=== PATIENT | female | born 1990 | race Caucasian/White ===

== ENCOUNTER 2019-02-26 00:32 | Emergency (ER) | payer OTHER, MEDICAID, SELFPAY ==
[2019-02-26 00:34] VITALS: BP 120/72; PULSE 77; RESP 18; TEMP 36.7; O2SAT 98; BMI 36.0
--- NOTE | 2019-02-26 00:50 | ED.DCSUM_ITS ---
History of Present Illness Chief Complaint: Syncope Informant: Patient Narrative: Patient stated that she had gradual onset of lower suprapubic abdominal pain that started an hour ago at work. She stated it started out mild and felt like an uncomfortable feeling and then became more intense. She stated she felt lightheaded due to the pain. The pain then let up and is currently very mild. She is never felt this before. Denies any urinary symptoms. Her last menstrual period was in January but she only bled for 1 day. She took a test 4 days ago and was positive. This is her second . She has a 9-year-old child. She is never had an ectopic . She denies any vaginal bleeding or vaginal discharge. Current severity is mild. No home treatment. No nausea or vomiting or diarrhea. She had a normal day otherwise per patient. Denies any back pain. Denies any fevers or chills or upper abdominal pain. Past Medical History - Allergies and Home Meds Allergies/Adverse Reactions: Allergies No Known Allergies Allergy (Verified 02/26/19 00:37) Primary Care Physician: NOT,DEFINED [NON-STAFF] - Prior records reviewed: Yes Past Medical History: None Surgical History: - - Reviewed Smoking Status: Current every day smoker Alcohol: None Drugs: None Review of Systems General: Denies: Chills, Fever, Sweats Eyes: Denies: Visual changes - bilaterally, Diplopia ENT: Denies: Rhinorrhea, Sore throat Cardiovascular: Denies: Chest pain, Palpitations Respiratory: Denies: Dyspnea, Cough, Dyspnea on exertion Gastrointestinal: Reports: Abdominal pain. Denies: Nausea, Vomiting, Diarrhea, Melena, Hematochezia Genitourinary: Denies: Dysuria, Hematuria, Frequency Musculoskeletal: Denies: Back pain, Extremity Pain Skin: Denies: Rash, Wounds Neurological: Denies: Headache, Weakness, Numbness Physical Exam Vital Signs/Narrative: Vital Signs Temp Pulse Resp BP Pulse Ox 02/26/19 00:34 98.1 F 77 18 120/72 98 General: Well nourished, Well developed, No Acute Distress Head: Normocephalic, Atraumatic Eyes: Perrl, EOMI ENT: Moist mucous membranes, No rhinorrhea Neck: Supple, Nontender Cardiovascular: Regular rate, Regular rhythm, No murmurs Respiratory: No distress, CTA bilaterally, Chest nontender Abdomen: Soft, Nontender, Nondistended, Normal bowel sounds : - - Pelvic exam shows no adnexal tenderness. Cervix is normal. There is no discharge. Vaginal contents normal. External structures normal. No tenderness over the uterus Back: Nontender, Normal Inspection Extremities: Nontender, No edema Skin: Normal color, No rash Neurological: Alert, Oriented x3, Cranial nerves II-XII grossly intact, Normal Strength, Normal Sensation Psychological: Normal affect, Normal Mood Diagnostic/Tx/Re-eval - Medical Decision Making IV established and given IV fluids. Did not want any pain medicine. Lab work obtained. Lab work shows no abnormalities. No evidence of infection. Quantitative levels are 5040. Ultrasound obtained shows nothing acute. Left ovarian cyst 2.7 cm noted. No intrauterine gestational sac. Ectopic cannot be ruled out. 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 At this time it was discussed with her that she will need a repeat quantitative hCG. They may also repeat ultrasound. She understands she still may have an ectopic. However I feel she can be discharged for further outpatient management and still feel this is low in the differential. She understands if she worsens she will return ED Disposition - Plan for ED Patient: Disposition: Home or Assisted Living Diagnosis: Abdominal pain affecting Instructions: Abdominal Pain Additional Instructions: [facility] you will need repeat level checks on Monday
[2019-02-26] MEDS: 0.9% Normal Saline 1,000 ML 1000 ML IV (00:54)
[2019-02-26 00:57] LABS: Absolute Lymphocyte Count 2.53 X10^3/uL (0.83-4.51); Absolute Neutrophil Count 7.6 X10^3/uL (2.0-7.7); Basophil# 0.03 X10^3/uL; Basophil% 0.3 % (0-1); Eosinophil# 0.03 X10^3/uL; Eosinophils% 0.3 % (0-5); Hematocrit 42.5 % (37-47); Hemoglobin 13.6 g/dL (12.0-15.0); Lymphocyte # 2.53 X10^3/ul (4.0); Lymphocyte % 22.9 % (19-41); Mean Corpuscular Hgb 28.9 pg (27.0-32.0); Mean Corpuscular Volume 90.2 fL (81-99); Mean Platelet Vol. 10.6 fl (6.2-12.0); Monocyte# 0.78 X10^3/uL; Monocyte% 7.1 % (0-10); NRBC Flagged by Analyzer 0 % (0-5); Neutrophil # 7.63 X10^3/uL (2.7-7.7); Platelet Count 253 K/mm3 (150-450); RBC Distribution Width CV 12.1 % (11.6-14.6); RBC Distribution Width SD 39.8 fl (35.1-43.9); Red Blood Count 4.71 M/mm3 (4.2-5.4)
[2019-02-26 01:14] LABS: Anion Gap 8 (5-15); BUN 10 mg/dL (7-18); BUN/Creat Ratio 12.3 RATIO (10-20); Calcium,Total 8.9 mg/dL (8.5-10.1); Chloride 105 mmol/L (98-107); Creatinine, Serum 0.82 mg/dL (0.55-1.02); EST Glomerular Filtration Rate 88 mL/min (>60); Est Glom Filt Rate - Afr Amer 106 mL/min (>60); Estimated Creatinine Clearance 94.77 ml/min; Glucose 97 mg/dL (74-106); Potassium 3.9 mmol/L (3.5-5.1); Sodium Level 138 mmol/L (136-145); hCG Titer Quant., Serum 5040 mIU/mL (1-3)
[2019-02-26 01:47] LABS: Bacteria 0 SEEN /hpf (None Seen); Color, Urine Yellow (Yellow); Glucose, Dipstick Normal (Normal); Ketone-Dipstick 5 mg/dl (Negative); Leukocyte Esterase-Dipstick 25 /ul (Negative); Nitrite-Dipstick Negative (Negative); Occult Blood-Urine 10 /ul (Negative); Protein-Dipstick 30 mg/dl (Negative); Red Blood Cells-Urine 0 SEEN /hpf (0-5); Squamous Epithelial Cells - UA 0 SEEN /hpf (5-10); Urine Bilirubin Dipstick Negative (Negative); Urine Clarity Clear (Clear); Urine Urobilinogen 1 mg/dl (Normal)
[2019-02-26 01:53] LABS: Mucous, Urine 1+ /hpf (<or=2+); Transitional Epithelial - Ur 25-50 SEEN /hpf (0-5); White Blood Cells 0-5 SEEN /hpf (0-5)
--- NOTE | 2019-02-26 02:08 | US_ITS ---
STUDY: FIRST TRIMESTER OBSTETRICAL ULTRASOUND REASON FOR EXAM: Female, 28 years old pelvic pain PELVIC PAIN 7 WEEKS LMP: 01/13/2019 TECHNIQUE: Transvaginal TECHNICAL QUALITY: Adequate. PRIOR ULTRASOUND: None. FINDINGS: There is no demonstrated intrauterine gestational sac. The uterus measures 8 x 5.6 x 4.6 cm. There is no demonstrated uterine fibroid. The cervix is closed. The right ovary measures 3.4 x 2.4 x 2.1 cm. There is no right ovarian cyst. There is no visualized right adnexal mass or complex lesion. The left ovary measures 3.8 x 3.2 x 3.0 cm. There is 2.7 cm left ovarian cyst. There is no visualized left adnexal mass or complex lesion. There is minimal fluid in the cul de sac. US/Transvaginal w/Preg US IMPRESSION: There is 2.7 cm left ovarian cyst. There is minimal fluid in the cul de sac. There is no intrauterine gestational sac. Ectopic cannot be excluded. Electronically Signed: Vega Mehta, at 4:13 EDT Tel , Service support ,
[2019-02-26 03:47] VITALS: BP 116/70; PULSE 68; RESP 18; O2SAT 99
[2019-02-26 05:11] VITALS: BP 103/61; PULSE 65; RESP 18; O2SAT 99
== END 2019-02-26 05:43 | disposition home or self-care (01) ==
PROVIDERS: Emergency Provider Emergency Medicine
DX: O26.899 Other specified pregnancy related conditions, unspecified trimester (principal); R10.2 Pelvic and perineal pain; O34.80 Maternal care for other abnormalities of pelvic organs, unspecified trimester; N83.202 Unspecified ovarian cyst, left side; Z3A.00 Weeks of gestation of pregnancy not specified
CPT/HCPCS: 76817; 80048; 81001; 84702; 85025; 96360; 96361; 99285; J7030; A4216

== ENCOUNTER 2019-02-28 06:07 | Day surgery (SDC) | payer OTHER, MEDICAID, SELFPAY ==
[2019-02-28] VITALS (16 sets, daily range): BP systolic 89–125; BP diastolic 52–99; PULSE 18–80; RESP 16–18; TEMP 36.3–37.3; O2SAT 91–100; BMI 36.3
--- NOTE | 2019-02-28 06:21 | US_ITS ---
We are attempting to reach an attending provider to discuss findings. An addendum with communication details will be sent when the communication is complete. EXAM DESCRIPTION: Transvaginal pelvic ultrasound CLINICAL HISTORY: 28 years Female, pain and quantitative HCG 5031 COMPARISON: None FINDINGS: Serial longitudinal and transverse scans of the pelvis were obtained utilizingtransvaginal pelvic ultrasound imaging.. Uterus is identified and is normal in appearance with the following measurements; 9.1 x 5.4 x 4.4 cm. The endometrial echo stripe measures 7 mm, and is smooth. Specifically no evidence of an endometrial, intrauterine gestational sac is seen. No uterine leiomyomas are identified. The ovaries are well identified and has the following measurements: Right ovary: 4.6 x 1.9 x 2.1 cm . No ovarian cyst are identified. Left ovary:: 5.9 x 4.3 x 3.5 cm . A corpus luteum cyst measuring 2.7 x 2.5 x 2.5 cm in size is identified. No adnexal masses or lesions are seen. Bloody fluid is noted in the cul-de-sac. This is most likely due to a ruptured ectopic which is seen in the cul-de-sac and measures 3.8 x 3.1 x 2.7 cm in size. This abnormal report was immediately called to Dr. Chaparro Starks in the emergency room by Dr. Alonso Blackwood at 8:15 AM on 02/28/2019 US/Transvaginal w/Preg US IMPRESSION: An ectopic is noted in the cul-de-sac with surrounding blood suggestive of rupture as described above. Electronically Signed: Alonso Blackwood, at 8:27 EDT Tel , Service support ,
--- NOTE | 2019-02-28 06:24 | ED.VIS.GEN ---
History of Present Illness Chief Complaint: Vag Bld, Preg Informant: Patient Onset: Today Narrative: G1, P2 7 weeks gestation presents with increasing pelvic pain hour prior to arrival. She states there is blood upon wiping. No clots. Patient positive home test a week ago, she is seen 2 days ago in the ED here had a quant of 5000, however ultrasound did not know any intrauterine gestation. There is discussion of possible ectopic, she had a follow-up yesterday at [facility] with Dr. Padron, she reports her quant was high, also states ultrasound was done in office by the physician, still possibly ectopic versus possibly twin gestation however no clear findings. Prior similar symptoms: Yes Past Medical History - Allergies and Home Meds Allergies/Adverse Reactions: Allergies No Known Allergies Allergy (Verified 02/26/19 00:37) Primary Care Physician: Care Physician,No Primary [Primary Care Provider] - Surgical History: - - Reviewed Smoking Status: Former smoker Review of Systems General: Denies: Chills, Fever, Sweats Eyes: Denies: Visual changes - bilaterally, Diplopia ENT: Denies: Rhinorrhea, Sore throat Cardiovascular: Denies: Chest pain, Palpitations Respiratory: Denies: Dyspnea, Cough, Dyspnea on exertion Gastrointestinal: Reports: Abdominal pain. Denies: Nausea, Vomiting, Diarrhea, Melena, Hematochezia Genitourinary: Denies: Dysuria, Hematuria, Frequency Musculoskeletal: Denies: Back pain, Extremity Pain Skin: Denies: Rash, Wounds Neurological: Denies: Headache, Weakness, Numbness Physical Exam Vital Signs/Narrative: Vital Signs Temp Pulse Resp BP Pulse Ox 02/28/19 06:07 97.4 F L 80 18 116/72 98 Inital Vital Signs reviewed: Yes General: Well nourished, Well developed, - - Patient uncomfortable Head: Normocephalic, Atraumatic Eyes: Perrl, EOMI ENT: Moist mucous membranes, No rhinorrhea Neck: Supple, Nontender Cardiovascular: Regular rate, Regular rhythm, No murmurs Respiratory: No distress, CTA bilaterally, Chest nontender Abdomen: Soft, Nondistended, Normal bowel sounds, - - Tender palpation across pelvis, no rebound or guarding Back: Nontender, Normal Inspection Extremities: Nontender, No edema Skin: Normal color, No rash Neurological: Alert, Oriented x3, Cranial nerves II-XII grossly intact, Normal Strength, Normal Sensation Psychological: Normal affect, Normal Mood Diagnostic/Tx/Re-eval Abnormal Lab Results 02/28/19 02/28/19 02/28/19 06:35 06:35 06:35 WBC 8.4 RBC 4.33 Hgb 13.1 Hct 38.6 MCV 89.1 MCH 30.3 MCHC 33.9 RDW Std Deviation 39.4 RDW Coeff of Nayla 12.1 Plt Count 209 MPV 10.3 Immature Gran % (Auto) 0.600 Neut % (Auto) 72.2 H Lymph % (Auto) 15.9 L Lenoir % (Auto) 10.3 H Eos % (Auto) 0.6 Baso % (Auto) 0.4 Absolute Neuts (auto) 6.1 Absolute Lymphs (auto) 1.33 Nucleated RBC % 0 PT INR APTT HCG, Quant 5031 H Blood Type TNP 02/28/19 02/28/19 06:35 06:35 WBC RBC Hgb Hct MCV MCH MCHC RDW Std Deviation RDW Coeff of Nayla Plt Count MPV Immature Gran % (Auto) Neut % (Auto) Lymph % (Auto) Lenoir % (Auto) Eos % (Auto) Baso % (Auto) Absolute Neuts (auto) Absolute Lymphs (auto) Nucleated RBC % PT 14.3 INR 1.1 APTT 35.4 HCG, Quant Blood Type O POSITIVE - Medical Decision Making Patient increasing pain 1 hour prior to arrival. From history, concern for ectopic . Do not have records from evaluation yesterday of her hCG she does not know the number. Blood pressure is stable. Obtain labs, she initially reluctant for pain medicines however agreed, morphine Zofran was given along with fluids. She is kept n.p.o. Ultrasound was ordered for further evaluation. Labs returning, noted hCG today 5031 slightly lower from 2 days ago. As noted she had outpatient drawn yesterday from OB office. Patient currently in imaging right now for ultrasound. Pending results will need to discuss with OB for final disposition. patient signed out to morning physician. ED Disposition - Plan for ED Patient: Diagnosis: Pelvic pain affecting Referrals: Care Physician,No Primary [Primary Care Provider] -
[2019-02-28 06:45] LABS: Absolute Lymphocyte Count 1.33 X10^3/uL (0.83-4.51); Absolute Neutrophil Count 6.1 X10^3/uL (2.0-7.7); Basophil# 0.03 X10^3/uL; Basophil% 0.4 % (0-1); Eosinophil# 0.05 X10^3/uL; Eosinophils% 0.6 % (0-5); Hematocrit 38.6 % (37-47); Hemoglobin 13.1 g/dL (12.0-15.0); Lymphocyte # 1.33 X10^3/ul (4.0); Lymphocyte % 15.9 % (19-41); Mean Corp Hgb Conc 33.9 g/dL (32-36); Mean Corpuscular Hgb 30.3 pg (27.0-32.0); Mean Corpuscular Volume 89.1 fL (81-99); Mean Platelet Vol. 10.3 fl (6.2-12.0); Monocyte# 0.86 X10^3/uL; Monocyte% 10.3 % (0-10); NRBC Flagged by Analyzer 0 % (0-5); Neutrophil # 6.05 X10^3/uL (2.7-7.7); Neutrophil % 72.2 % (47-70); Platelet Count 209 K/mm3 (150-450); RBC Distribution Width CV 12.1 % (11.6-14.6); RBC Distribution Width SD 39.4 fl (35.1-43.9); Red Blood Count 4.33 M/mm3 (4.2-5.4); White Blood Count 8.4 K/mm3 (4.4-11.0)
[2019-02-28] MEDS: Ondansetron 4 MG/2 ML Vial IV (06:46)
[2019-02-28] MEDS: 0.9% Normal Saline 1,000 ML 150 ML IV (06:46)
[2019-02-28] MEDS: Morphine 4 MG/ML Syringe IV (06:47)
--- NOTE | 2019-02-28 06:50 | ED.RN ---
PT AND VISITOR WERE HAVING A LOUD VERBAL DISPUTE AND BEGAN THROWING PERSON ITEMS AROUND THE ROOM. SECURITY CALLED TO REMOVE VISITOR. VISITOR IS NOW WAITING IN THE WAITING ROOM.
[2019-02-28 06:53] LABS: International Normalized Ratio 1.1; Prothrombin Time (Protime)PT. 14.3 SECONDS (11.7-14.9)
[2019-02-28 06:54] LABS: Partial Thromboplast Time 35.4 Seconds (24.1-36.2)
[2019-02-28 07:22] LABS: hCG Titer Quant., Serum 5031 mIU/mL (1-3)
--- NOTE | 2019-02-28 09:06 | ED.VISSUMM ---
- ER Visit Summary Date of Service: 02/28/19 Addendum: The patient was checked out to me with ultrasound pending. Test Results: Clinical Impression(s) from Imaging Studies Obstetrics Ultrasound 02/28/19 06:21 IMPRESSION: An ectopic is noted in the cul-de-sac with surrounding blood suggestive of rupture as described above. Electronically Signed: Alonso Blackwood, at 8:27 EDT Tel , Service support , Emergency Department Course and Treatment: The patient is resting comfortably. She refused pain medications. Treatment Plan: The patient was discussed with Dr. Rachael Kwon. She will be taken to the operating room. Disposition: Admitted in stable condition. Impression: 1. Ruptured ectopic . This note was generated with [employer] dictation software. It may contain incorrect words, spelling, and punctuation that were not noted in review of the chart prior to signing ED Disposition - Plan for ED Patient: Diagnosis: Pelvic pain affecting Referrals: Care Physician,No Primary [Primary Care Provider] -
--- NOTE | 2019-02-28 09:07 | NURSING ---
WP OBS R RICK RUPTURED ECTOPIC
--- NOTE | 2019-02-28 09:13 | ED.RN ---
report called Jesenia ASHRAF RN.
[2019-02-28] MEDS: Lactated Ringers 1,000 ML 75 ML IV ×2 (09:54→14:35)
--- NOTE | 2019-02-28 13:00 | FAL_PTH ---
PATIENT: CRISTO CARCAMO LOC: [facility] [place] U#:[id number] AGE/SX: 28/F ROOM: RE02/28/[address]: Dr. Rachael Kwon MD : 1990 BED: DIS: 02/28/2019 SPEC #: [id number] RECD: 02/28/19 15:01 STATUS: JULY REPierce #: [id number] MOSES: 02/28/19 13:[address]: Rachael Kwon DEPT: SURGICAL PATHOLOGY RECD BY: Blu Colindres ENTERED: 03/01/19 07:13 SP TYPE: ECTOPIC OTHR DR: No Primary Care Phys Tissues: ECTOPIC PREG Procedures: Surgery Specimen Level IV HEADER OPERATION: Laparoscopic removal ectopic PRE-OP DIAGNOSIS: Pelvic pain affecting ; ectopic TISSUE SUBMITTED: Right fallopian tube MICROSCOPIC DIAGNOSIS Right fallopian tube, salpingectomy: Intraluminal chorionic villi, decidualized stroma and trophoblastic cells consistent with tubal . Benign paratubal cyst. AM:vito 03/04/19 MICROSCOPIC DESCRIPTION Slides are reviewed. GROSS DESCRIPTION Received in fixative is one container labeled with the patient's name and designated right fallopian tube. The specimen consists of a fallopian tube measuring 7.5 cm in length and 2.8 cm in greatest diameter. A smooth, glistening cyst measuring 1.2 cm is attached at one end. Serial sections reveal the lumen to contain reddish-chun material. parts are not grossly recognized. Promotion Writer sections are submitted in four cassettes. The cystic structure is submitted in cassette 4. / AM:vito 03/01/19 TC:5 CPT: 15896
--- NOTE | 2019-02-28 13:02 | HP.PCM_ITS ---
History Date of Admission: 02/28/19 History of this : This is a 28 year-old, 2 para 1 with uncertain exact last menstrual period who presents today for acute pelvic pain. She has been having intermittent pelvic pain since 02/25/2019. She was seen in the emergency room on 02 26 and then in the office on 02/27/2019. She then arrived this morning because she had acute sudden onset of pain in her lower mid abdomen, radiating to both sides. She cannot describe it is worse on one side than the other. It is sharp and stabbing. It seems to come in waves. It is intense enough to make her nauseous. Worse when she is moving. She is never had anything like this before. She has been attempting for a couple of months. Surgical history is significant for diagnostic laparoscopy. Symmetrical history: She is had one previous that resulted in a full- term vaginal without complications. She will history: She denies any history of sexually transmitted diseases, she denies any drug use. Allergies No Known Allergies Allergy (Verified 02/26/19 00:37) Home Medications: Home Medications 02/26/19 Smoking Status: Former smoker History Past Pregnancies: Past Pregnancies Delivery Date Name GA/Weeks Outcome Route Weight Infant Gender Labor Length Anesthesia Delivery Location Provider FOB Review of Systems Constitutional: Denies: Anorexia, Chills, Fever Cardiovascular: Denies: Chest Pain, Chest Pressure Respiratory: Denies: Cough, Shortness of Breath Gastrointestinal: Denies: Diarrhea, Nausea, Vomiting Genitourinary: Denies: Dysuria, Frequency Gynecological: Denies: Vaginal discharge, Vaginal itching Skin: Denies: Rash Neurological: Reports: Change in Speech, Slurred speech. Denies: Confusion Hematologic/ Lymphatic: Denies: Anemia, Easy Bruising, Easy Bleeding, Hx of blood clot Physical Exam Vitals: Vital Signs Temp Pulse Resp BP Pulse Ox 98.3 F 68 16 123/70 H 100 02/28/19 09:06 02/28/19 09:09 02/28/19 09:09 02/28/19 09:10 02/28/19 09:09 General: Alert, - - Distress, breathing shallowly and having trouble sitting still in bed because of the abdominal pain. She is lying flat. Cardiovascular: Regular rate Lungs: Normal air movement Abdomen: Non-Distended, Obese, Guarding, Rebound Tenderness, - - No palpable masses or hernia Extremities:: No edema MANAGER OF ORGANIZATIONAL DEVELOPMENT: Normal external genitalia - Pelvic exam deferred due to patient discomfort Assessment/Plan All Active Problems Pelvic pain affecting (Acute) This is a 28 year-old, 2 para 1 now with an ectopic . Quantitative hCGs have basically leveled out at 5000. There is no evidence of an intrauterine on 3 consecutive ultrasounds. Patient had no evidence of a discrete ectopic on previous ultrasounds. Now has free fluid in the cul-de-sac. This along with her acute abdominal pain, I discussed with her and her partner risk benefits and alternatives to surgical intervention. She is not a conservative management patient at this time. They state understanding and agreement with this plan. Risk benefits and alternatives to laparoscopy with removal of ectopic , possible salpingectomy were discussed with the patient her questions were answered to her satisfaction and consent was signed. She understands I cannot definitively at this time from the imaging and her exam tell which side the ectopic is on.
[2019-02-28] MEDS: Bupivacaine Mpf 0.5% 30 ML VIAL (14:00)
--- NOTE | 2019-02-28 14:16 | PCM.OPRPT ---
Report of Operation Date of Procedure: 02/28/19 Pre-Operative Diagnosis: acute abdominal pain, ruptured ectopic Post-Operative Diagnosis: same, ruptured right ectopic + pelvic adhesions Surgery/Procedure Performed:: Laparoscopic right salpingectomy Description of Surgical Findings:: Ruptured right ectopic , normal-appearing right ovary with some of filmy adhesions to the right pelvic sidewall, left tube and ovary adhered to each other and left ovary adhered to the pelvic sidewall, no obvious evidence of endometriosis, some posterior cul-de-sac adhesions. Well-appearing uterus. Ovaries overall normal in appearance. No adhesions noted in the remainder of the lower or upper abdomen line tender flakeboard: andressa Moore Type of Anesthesia:: General Anesthesiologist: Mitesh Lea Special Medications: none Specimen's removed: right fallopian tube w/ suspected ectopic Drains: none Estimated Blood Loss (mL): 100 Fluids Replaced: 800 cc LR Description of Procedure: The patient was taken to the operating room where she was prepped and draped in the dorsolithotomy position. A weighted speculum was placed in the vagina and the anterior lip of the cervix was grasped with a tenaculum. The Avani uterine manipulator was placed and the remainder of the instruments were removed from the vagina. Attention was turned to the abdomen. All port sites were infiltrated with 0.5% Marcaine before skin incisions were made. A 5 mm [intraumbilical] incision was made. The anterior abdominal wall was tented up with 2 towel clamps while a 5 mm blade less trocar and sleeve were [directly inserted]. Intraperitoneal placement was confirmed with the laparoscope. The pneumoperitoneum was created and the underlying abdominal contents were intact. The patient was placed in Trendelenburg. Right and left lower quadrant ports were placed under direct visualization lateral to the inferior epigastric vessels. The bowel was swept away and the above findings were noted. There was a moderate amount of blood and clot in the posterior cul-de-sac. The entire fimbriated end of the tube was swollen and distorted and ruptured. Decision was made to remove the entire tube since it was grossly ruptured. The LigaSure device was used to clamp seal and transect the antimesenteric portions of the right tube to the cornual insertion of the uterus. The tube was amputated from the uterus and the pedicles were all confirmed to be hemostatic. The suction mathematician research was to remove any clots and debris from the posterior cul-de-sac and the peritoneal cavity. Irrigation was used in an attempt to remove as much of the blood as possible. The umbilical port site was stretched with a Marilu clamp and an Endo Catch bag was placed into the peritoneal cavity and the specimen placed in the bag. It was brought out through the umbilical site. The pedicles were again examined and found to be hemostatic. The lateral ports were removed under direct visualization and no active bleeding was noted. The pneumoperitoneum was released. The umbilical port site fascia was closed with 0 Vicryl suture. The skin incisions were closed with Monocryl suture in a subcuticular fashion and skin glue. The vaginal instruments were removed and the vaginal sweep was completed by me. The entire procedure was performed by me with assistance. All sponge and needle counts were correct and the patient was taken to the recovery room in stable condition. Grafts/Implants Used: none - Complications none - Admit VTE Documentation VTE Present on Admission: No VTE Mechan Device Prophylaxis: SCD's VTE Pharm Prophylaxis ordered?: No Reason prophylaxis not ordered:: Procedure Not Indicated
--- NOTE | 2019-02-28 14:32 | PCM.DC.TUB ---
Discharge Diet: No Restrictions - Increase fluid intake for the next 48 hours. Discharge Activity: Return to Normal Activity, May Drive - when you are no longer taking pain/narcotic meds., May Shower, May Take a Tub Bath - in 7 days Additional Activity Instructions:: Ambulate often the next week after surgery. Nothing in the vagina for 5 days. Call your doctor if your incision/area has: Continuous Slow Oozing, Sudden Increased Bleeding, Increased Pain/ Swelling, Increased Redness, Foul Smelling Discharge Call your doctor if you observe: Fever of 101 or Higher Allergies/Adverse Reactions: Allergies No Known Allergies Allergy (Verified 02/26/19 00:37) Medications to take at Discharge Acetaminophen [Tylenol Extra Strength] 500 - 1,000 mg PO Q6H PRN PRN #40 tab 02/28/19 Ibuprofen [Motrin] 800 mg PO TID PRN PRN #60 tab 02/28/19 Oxycodone [Oxyir] 5 mg PO Q8 PRN 4 Days #12 tab 02/28/19 The following prescriptions were given: Ibuprofen [Motrin] 800 mg PO TID PRN PRN #60 tab PRN Reason: Pain Transmission Status: Received by [facility] Oxycodone [Oxyir] 5 mg PO Q8 PRN 4 Days #12 tab PRN Reason: severe pain Transmission Status: Received by [facility] Acetaminophen [Tylenol Extra Strength] 500 - 1,000 mg PO Q6H PRN PRN #40 tab PRN Reason: mild pain Transmission Status: Received by [facility] Primary Care Physician: Care Physician,No Primary [Primary Care Provider] - Test Results: Test results from this visit will be discussed in further detail at your follow-up appointment, if applicable. Please Follow Up With: Rachael Kwon MD - [phone] When: approximately 2 weeks in our office
== END 2019-02-28 17:08 | disposition home or self-care (01) ==
LOC: ED 09:03 → SDC 09:15
PROVIDERS: Emergency Provider Emergency Medicine; Visit Provider Obstetrics & Gynecology
PROC: 10T24ZZ Resection of Products of Conception, Ectopic, Percutaneous Endoscopic Approach (ICD-10-PCS; CPT 59150; principal; 2019-02-28 12:45)
DX: O00.101 Right tubal pregnancy without intrauterine pregnancy (principal); N83.8 Other noninflammatory disorders of ovary, fallopian tube and broad ligament; Z87.891 Personal history of nicotine dependence
CPT/HCPCS: 00840; 59151; 76817; 84702; 85025; 85610; 85730; 86900; 86901; 88305; 99284; J7030; J7120; A4216; J2405

== ENCOUNTER 2021-02-14 21:20 | Inpatient (IN) | payer MEDICAID, SELFPAY ==
[2021-02-14] VITALS (10 sets, daily range): BP systolic 129–152; BP diastolic 61–101; PULSE 67–88; TEMP 36.3–36.9; O2SAT 97; BMI 38.2
[2021-02-14] MEDS: Lactated Ringers 1,000 ML 999 ML IV (21:25)
[2021-02-14 21:31] LABS: Absolute Lymphocyte Count 2.47 X10^3/uL (0.83-4.51); Basophil# 0.04 X10^3/uL; Basophil% 0.5 % (0-1); Eosinophil# 0.03 X10^3/uL; Eosinophils% 0.3 % (0-5); Hemoglobin 12.3 g/dL (12.0-15.0); Lymphocyte # 2.47 X10^3/ul (0.83-4.51); Lymphocyte % 28.4 % (19-41); Mean Corp Hgb Conc 33.2 g/dL (32-36); Mean Corpuscular Volume 87.3 fL (81-99); Mean Platelet Vol. 12.6 fl (6.2-12.0); Monocyte% 11.5 % (0-10); NRBC Flagged by Analyzer 0 % (0-5); Neutrophil # 5.02 X10^3/uL (2.7-7.7); Neutrophil % 57.8 % (47-70); Platelet Count 204 K/mm3 (150-450); RBC Distribution Width CV 12.5 % (11.6-14.6); RBC Distribution Width SD 39.3 fl (35.1-43.9); Red Blood Count 4.24 M/mm3 (4.2-5.4); White Blood Count 8.7 K/mm3 (4.4-11.0)
[2021-02-14] MEDS: Oxytocin 30 units/NS 500 ml 30 UNITS/500 ML IV.SOLN 334 UNITS IV (21:47)
--- NOTE | 2021-02-14 22:08 | HP.PCM.OB_ITS ---
HPI - General General Date of Admission: 02/14/21 HPI Narrative CRISTO CARCAMO, is a 30 F who presents in labor. Maternal Data Information Final LIBIA: 02/17/21 Gestational age: 39&4 PFSH PFSH Medical History (Updated 02/14/21 @ 22:[address] Laly Kim MD) Ectopic , tubal Allergy/AdvReac Type Severity Reaction Status Date / Time No Known Allergies Allergy Verified 02/14/21 21:19 Surgical History (Updated 02/14/21 @ 22:[address] Laly Kim MD) S/P laparoscopic surgery Social History (Updated 02/14/21 @ 22:[address] Laly Kim MD) Smoking Status: Former smoker substance use type: other details: history of substance use per records but none currently Vital Signs Vital Signs Vital Signs: 02/14/21 21:30 02/14/21 22:03 02/14/21 22:04 Pulse Rate 80 88 70 Blood Pressure 140/83 H 136/101 H 143/97 H BP Systolic 140 136 143 BP Diastolic 83 101 97 Pulse Ox 97 Weight Weight: 237 lb Body Mass Index (BMI) 38.2 Labs Labs Labs: Blood Type O POSITIVE Antibody Screen Pending Hct 37.0 % (37-47) Hgb 12.3 g/dL (12.0-15.0) Obstetrics US Group B Strep DNA Pending 3 visits in [place] Assessment & Plan (1) 39 weeks gestation of : COMMENT: 39&4 in labor PLAN: Patient presented to L&D and had a precipitous - see delivery note care in [place] - records from her 3 visits obtained Elevated GCT at 137 with no 3hr GTT and maternal h/o GDM - peds notified Rapid GBS sent COVID pending Plan for social work consult Routine care
--- NOTE | 2021-02-14 22:16 | EX.PCM.OBRPT ---
Maternal Data Information Final LIBIA: 02/17/21 Gestational age: 39&4 Vaginal Delivery Maternal Presentation Maternal Presentation: Active Labor Operative Information Date of Procedure: 02/14/21 Pre-Operative Diagnosis: Labor Post-Operative Diagnosis: Labor Surgery / Procedure Performed: Spontaneous Vaginal Delivery Type of Anesthesia: Local with 1% Lidocaine Estimated Blood Loss: 350ml Findings Description of Procedure: Patient prepped & draped when C/C/+2. She pushed well to deliver the head. head gently guided to allow delivery of anterior and posterior shoulders. No excess traction placed on head. Body delivered and 3VC clamped & cut in delayed fashion. Placenta delivered with gentle traction and good uterine tone obtained. Presentation: LIA Amniotic Membrane Rupture Type: Spontaneous Amniotic Fluid Description: Clear Placental Delivery Description: Expressed Placenta Disposition: [facility] Specimen(s) Removed: Placenta Cord Vessel Description: 3 Vessels Cord Entanglement: None A Gender: Male (1 minute): 8 (5 minute): 9 Delayed Cord Clamping: Yes Post Vaginal Delivery Medications Given After Delivery: IV Pitocin Episiotomy Description: None Laceration: 1st degree (bilateral vaginal - repaired with 3-0 vicryl) Complication Complications: None
--- NOTE | 2021-02-14 22:25 | NURSING ---
Limited care- 3 visits total, did not establish care in [place]
[2021-02-14 23:04] LABS: Group B Strep DNA By PCR POSITIVE (Negative); Probe Check PASS
[2021-02-14 23:17] LABS: AST(SGOT) 16 U/L (15-37); Alanine Aminotransfer ALT/SGPT 13 U/L (13-56); Creatinine, Serum 0.83 mg/dL (0.55-1.02); EST Glomerular Filtration Rate 85 mL/min (>60); Est Glom Filt Rate - Afr Amer 103 mL/min (>60); Estimated Creatinine Clearance 91.94 ml/min; Uric Acid 5.2 mg/dL (2.6-6.0)
[2021-02-15 00:04] VITALS: BP 145/70; PULSE 68
--- NOTE | 2021-02-15 00:46 | NURSING ---
0020 Assisted pt up to BR. Several large clots noted in urine hat. Pt denies c/o dizziness or lightheaded. Pt educated on pericare, and s/s to report to RN. Urine specimen sent to lab for tox screen per protocol.
[2021-02-15 01:20] LABS: Amphetamine Urine VISTA NEGATIVE (<1000 ng/mL); Barbiturate Urine VISTA NEGATIVE (< 200 ng/mL); Benzodiazepine Urine VISTA NEGATIVE (< 200 ng/mL); Cocaine Urine VISTA NEGATIVE (< 300 ng/mL); Ecstacy Urine VISTA NEGATIVE (< 500 ng/mL); Methadone Urine VISTA NEGATIVE (< 300 ng/mL); PCP Urine VISTA NEGATIVE (< 25 ng/mL); THC Urine VISTA NEGATIVE (< 50 ng/mL); Vista UDS pH Range 7
[2021-02-15 04:30] VITALS: BP 110/71; PULSE 103; RESP 16; TEMP 36.2
[2021-02-15 08:03] VITALS: BP 113/68; PULSE 96; RESP 16; TEMP 36.5
[2021-02-15 09:26] LABS: Bedside Glucose 100 mg/dL (70-110)
--- NOTE | 2021-02-15 10:05 | PN.OBGYN_ITS ---
Subjective Subjective Doing well per patient and nursing staff. Ambulating and taking PO without difficulty. Voiding and passing flatus. Pain controlled. , services for assistance. Denies headache, visual changes, chest pain, shortness of breath, leg pain or increased bleeding. Lochia normal. Objective Data Objective Data Vital Signs: Vital Signs Temp Pulse Resp BP Pulse Ox 97.7 F L 96 16 113/68 97 02/15/21 08:03 02/15/21 08:03 02/15/21 08:03 02/15/21 08:03 02/14/21 22:03 Oxygen Delivery Method Room Air Weight: 237 lb Body Mass Index (BMI) 38.2 Intake & Output: Intake and Output for Last 24 Hours 02/13/21 02/14/21 02/15/21 23:59 23:59 23:59 Intake Total 500 / 500 333 / 333 Output Total 300 / 300 Balance 500 / 500 33 / 33 Lab / Micro Data Result Diagrams: 02/14/21 21:20 02/14/21 21:20 Labs: Laboratory Results - last 24 hr 02/14/21 20:30: Group B Strep DNA POSITIVE H, Specimen Comment Not Reportable 02/14/21 21:20: WBC 8.7, RBC 4.24, Hgb 12.3, Hct 37.0, MCV 87.3, MCH 29.0, MCHC 33.2, RDW Std Deviation 39.3, RDW Coeff of Nayla 12.5, Plt Count 204, MPV 12.6 H, Immature Gran % (Auto) 1.500 H, Neut % (Auto) 57.8, Lymph % (Auto) 28.4, [place] % (Auto) 11.5 H, Eos % (Auto) 0.3, Baso % (Auto) 0.5, Absolute Neuts (auto) 5.0, Absolute Lymphs (auto) 2.47, Nucleated RBC % 0 02/14/21 21:20: Blood Type O POSITIVE, Antibody Screen NEGATIVE 02/14/21 21:20: Creatinine 0.83, Estim Creat Clear Calc 91.94, Est GFR (MDRD) Af Amer 103, Est GFR (MDRD) Non-Af 85, Uric Acid 5.2, AST 16, ALT 13 02/14/21 21:28: POC Glucose 100 02/15/21 00:30: Urine Opiates Screen NEGATIVE, Urine Methadone Screen NEGATIVE, Ur Barbiturates Screen NEGATIVE, Ur Phencyclidine Scrn NEGATIVE, Ur Amphetamines Screen NEGATIVE, U Methamphetamin-MDMA NEGATIVE, U Benzodiazepines Scrn NEGATIVE, Urine Cocaine Screen NEGATIVE, U Cannabinoids Screen NEGATIVE, Ur Drug Screen Comment Micro: Microbiology 02/14/21 21:42 Nasal Secretion SARS-CoV-2 Antigen (Rapid) - Final ROS Constitutional Constitutional: Reports systems reviewed and no addt'l complaints, except as documented; Denies headache(s) Eyes Eyes: Denies acute decrease in peripheral vision, blurry vision or change in vision ENT HEENT: Reports systems reviewed and no addt'l complaints, except as documented Cardiovascular Cardiovascular: Denies chest pain or dizziness Respiratory/Chest Respiratory/Chest: Denies cough, dyspnea, dyspnea on exertion, shortness of breath at rest or shortness of breath with exertion Gastrointestinal Gastrointestinal: Denies abdominal pain, diarrhea, nausea or vomiting Genitourinary Genitourinary: Denies abdominal discomfort Musculoskeletal Musculoskeletal: Denies limited range of motion Integumentary Integumentary: Reports systems reviewed and no addt'l complaints, except as documented Neurologic Neurologic: Reports systems reviewed and no addt'l complaints, except as doc umented Psychiatric Psychiatric: Reports systems reviewed and no addt'l complaints, except as documented Endocrine Endocrinology: Reports systems reviewed and no addt'l complaints, except as documented Hematologic/Lymphatic Hematologic/Lymphatic: Reports systems reviewed and no addt'l complaints, except as documented Allergic/Immunologic Allergic/Immunologic: Reports systems reviewed and no addt'l complaints, except as documented Physical Exam Const alert and oriented x3 General Appearance: cooperative Orientation / Consciousness: awake, oriented to person, oriented to place and oriented to time Exam Limitations: no limitations HEENT normocephalic Head and Scalp: normal to inspection, normocephalic and atraumatic Face and Sinus: normal facial exam Eyes General Eye: normal appearance of both eyes Neck full ROM Chest Chest: symmetrical chest wall rise Resp normal respiratory effort and normal air movement Auscultation: clear to auscultation bilaterally Cardio regular rate, regular rhythm, S1 normal heart sound, S2 normal heart sound, no murmurs, no rub, no gallops and no clicks GI normal to inspection, nondistended, normoactive bowel sounds and non-tender GI Narrative: Fundus firm 3 below U, appropriately tender. appearance of the vagina normal Bladder / Kidney Exam: no CVA tenderness Back/Spine normal ROM Extremity normal to inspection and full ROM Extremity Narrative: Raina's negative bilaterally, +1 non pitting edema. Skin no rashes or lesions noted Neuro oriented x3, CN's II-XII intact bilaterally and moves all extremities Sensorium / Orientation: awake, alert and oriented to person Motor Exam: clonus absent Deep Tendon Reflexes: Rt Patellar (L4): 2+ and Lt Patellar (L4): 2+ Assessment & Plan (1) (normal spontaneous vaginal delivery): COMMENT: PPD #1 (2) Elevated BP without diagnosis of hypertension: COMMENT: BP with mild range pressure PPD #1. Labs normal. PLAN: 1) Routine PP and instructions. services for latch. 2) BP with few mild range pressures, normal this morning. Labs normal. No signs of preeclampsia. 3) Pain controlled 4) Planning D/C home tomorrow
[2021-02-15 12:51] VITALS: BP 139/72; PULSE 91; RESP 16; TEMP 36.3
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
[2021-02-15 16:25] VITALS: BP 115/68; PULSE 91; RESP 16; TEMP 36.3
[2021-02-15 20:25] VITALS: BP 104/71; PULSE 83; RESP 16; TEMP 36.7
--- NOTE | 2021-02-15 21:20 | NURSING ---
Patient called staff to room; upon entering room, patient was sitting on toilet and stated she expressed large blood clot onto pad; patient states she feels well, no lightheadedness or dizziness noted. Patient concerned about size of blood clot; patient moved to bed independently; fundus 2 below midline with scant bleeding at this time; BP 111/75 HR 90 RR 16; educated patient on appropriate blood clot size at discharge and when to contact provider for bleeding, patient reassured and verbalized understanding; blood clot weighed - 194ml.
[2021-02-16 01:40] VITALS: BP 112/73; PULSE 85; RESP 18; TEMP 36.3
--- NOTE | 2021-02-16 07:35 | NURSING ---
bedside report given to Kristi Nguyen RN and Giuseppe Marvin RN who are assuming care of pt at this time
[2021-02-16 07:57] VITALS: BP 116/75; PULSE 74; RESP 16; TEMP 36.6
--- NOTE | 2021-02-16 08:14 | PCM.PN.OB ---
Subjective Subjective Patient seen at bedside. Feeling great. Had an episode yesterday of passing large clot when got up to go to void. Denies any further clots. Denies any dizziness, SOB, or CP. Both bottle and breast feeding. Desires discharge home. Objective Data Objective Data Vital Signs: Vital Signs Temp Pulse Resp BP Pulse Ox 97.9 F 74 16 116/75 97 02/16/21 07:57 02/16/21 07:57 02/16/21 07:57 02/16/21 07:57 02/14/21 22:03 Oxygen Delivery Method Room Air Weight: 237 lb Body Mass Index (BMI) 38.2 Intake & Output: Intake and Output for Last 24 Hours 02/14/21 02/15/21 02/16/21 23:59 23:59 23:59 Intake Total 500 / 500 333 / 333 Output Total 300 / 300 Balance 500 / 500 33 / 33 Lab / Micro Data Result Diagrams: 02/14/21 21:20 02/14/21 21:20 Labs: Laboratory Results - last 24 hr 02/14/21 21:28: POC Glucose 100 Micro: Microbiology 02/14/21 21:42 Nasal Secretion SARS-CoV-2 Antigen (Rapid) - Final ROS Eyes Eyes: Denies blurry vision, change in vision or spots in vision ENT HEENT: Denies dizziness or headache(s) Cardiovascular Cardiovascular: Denies abdominal pain, chest pain or dyspnea Respiratory/Chest Respiratory/Chest: Denies cough, dyspnea, shortness of breath at rest or shortness of breath with exertion Gastrointestinal Gastrointestinal: Denies abdominal pain, diarrhea or vomiting Genitourinary Genitourinary: Denies change in urinary stream, difficulty urinating or dysuria Musculoskeletal Musculoskeletal: Reports none Integumentary Integumentary: Denies rash Neurologic Neurologic: Denies dizziness, headache(s), memory loss or weakness Physical Exam Const alert and no apparent distress General Appearance: cooperative and comfortable Exam Limitations: no limitations HEENT normocephalic Eyes General Eye: normal appearance of both eyes Neck full ROM General: normal visual inspection Chest Chest: symmetrical chest wall rise Resp normal respiratory effort and normal air movement Effort and Inspection: symmetric chest movement Auscultation: clear to auscultation bilaterally Cardio regular rate and regular rhythm GI normal to inspection, nondistended, normoactive bowel sounds Back/Spine normal ROM Extremity full ROM and no calf tenderness General Extremity: normal exam except as noted Skin no rashes or lesions noted Neuro CN's II-XII intact bilaterally Psych mental status grossly normal Assessment & Plan (1) (normal spontaneous vaginal delivery): COMMENT: PPD #1 Routine care support Discharge home with follow up in office
--- NOTE | 2021-02-16 08:17 | PCM.DC ---
Discharge Instructions Diet Discharge Diet: No restrictions Activity May resume sexual activity in: 6-8 weeks Weight Bearing Status: Weight bearing as tolerated Dressing / Incision Call your doctor if you observe: Fever of 101 or Higher, Inability to urinate, Using more than 1 pad per hour, Shortness of breath, Chest pain, Calf discomfort and Uncontrolled pain Follow Up Care Please Follow Up With: Candida Calvillo CNM When: 2 weeks virtual visit/ 6 weeks in office Test Results: Test results from this visit will be discussed in further detail at your follow-up appointment, if applicable. Discharge Plan Admission Admit Date/Time: 02/14/21 21:20 Primary Reason for Your Visit: labor and delivery Attending Provider: Laly Kim Primary Care Provider: Care Physician,Mckayla Primary Discharge Orders/Prescriptions Referrals / Follow Up: Care Physician,No Primary [Primary Care Provider] - Disposition Disposition (needs filled in before D/C Order can be placed): Home, Self Care
--- NOTE | 2021-03-01 14:31 | CASEMGMT ---
Meconium tox screen did come back negative for baby. EZEKIEL Moncada
== END 2021-02-16 11:05 | disposition home or self-care (01) | DRG 560 ==
LOC: WPOUT 21:24 → WP 21:54
PROVIDERS: Admitting Provider Obstetrics & Gynecology; Referring Provider Obstetrics & Gynecology; Visit Provider Obstetrics & Gynecology
DX: O62.3 Precipitate labor (principal); O71.4 Obstetric high vaginal laceration alone; Z3A.39 39 weeks gestation of pregnancy; Z37.0 Single live birth
CPT/HCPCS: 59025; 59050; 80307; 82565; 82962; 84450; 84460; 84550; 85025; 86850; 86900; 86901; 87426; 87653; 99218; J7120; G0378

== ENCOUNTER → 2021-12-13 | Outpatient (CLI) | payer MEDICAID, SELFPAY ==
[2021-12-15 22:06] LABS: Chlamydia By Nucleic Acid AMP Negative (Negative)
[2021-12-16 12:47] LABS: Gonococcus By Nucleic Acid AMP Negative (Negative)
== END | disposition home or self-care (01) ==
PROVIDERS: Visit Provider Family Medicine
DX: R30.0 Dysuria (principal); Z20.9 Contact with and (suspected) exposure to unspecified communicable disease
CPT/HCPCS: 87086; 87088; 87491; 87591

== ENCOUNTER → 2022-03-03 | Outpatient (CLI) | payer MEDICAID, SELFPAY ==
[2022-03-03 12:18] LABS: Absolute Lymphocyte Count 2.25 X10^3/uL (0.83-4.51); Absolute Neutrophil Count 4.2 X10^3/uL (2.0-7.7); Basophil# 0.03 X10^3/uL; Basophil% 0.4 % (0-1); Eosinophil# 0.13 X10^3/uL; Eosinophils% 1.8 % (0-5); Hematocrit 40.3 % (37-47); Hemoglobin 13.2 g/dL (12.0-15.0); Lymphocyte # 2.25 X10^3/ul (0.83-4.51); Mean Corp Hgb Conc 32.8 g/dL (32-36); Mean Corpuscular Hgb 28.8 pg (27.0-32.0); Mean Corpuscular Volume 87.8 fL (81-99); Mean Platelet Vol. 10.2 fl (6.2-12.0); Monocyte# 0.45 X10^3/uL; Monocyte% 6.4 % (0-10); NRBC Flagged by Analyzer 0 % (0-5); Neutrophil # 4.15 X10^3/uL (2.7-7.7); POSITIVE MORPHOLOGY YES; Platelet Count 322 K/mm3 (150-450); RBC Distribution Width CV 12.1 % (11.6-14.6); Red Blood Count 4.59 M/mm3 (4.2-5.4)
[2022-03-03 12:21] LABS: Differential Indicated SCAN CRITERIA MET
[2022-03-03 12:40] LABS: Anion Gap 4 (5-15); BUN 11 mg/dL (7-18); BUN/Creat Ratio 14.9 RATIO (10-20); Calcium,Total 9.1 mg/dL (8.5-10.1); Chloride 108 mmol/L (98-107); Creatinine, Serum 0.74 mg/dL (0.55-1.02); EST Glomerular Filtration Rate 96 mL/min (>60); Est Glom Filt Rate - Afr Amer 117 mL/min (>60); Ferritin 29 ng/mL (8-252); Glucose 84 mg/dL (74-106); Iron 63 ug/dL (50-170); Iron Binding Capacity,Total 344 ug/dL (250-450); PERCENT IRON SATURATION 18.3 % (15.0-55.0); Potassium 3.8 mmol/L (3.5-5.1); Sodium Level 140 mmol/L (136-145)
[2022-03-03 12:43] LABS: Vitamin B12 499 pg/mL (211-911); Vitamin D,25 Hydroxy 31.1 ng/mL
[2022-03-09 11:09] LABS: Age Gdln ACOG Testing 30-65 (.)
[2022-03-09 11:17] LABS: HPV APTIMA, High Risk Negative (Negative)
[2022-03-09 11:18] LABS: HPV Reflexed? YES, CHARGE PATIENT
== END | disposition home or self-care (01) ==
PROVIDERS: PCP Family Medicine; Visit Provider Family Medicine
DX: Z12.4 Encounter for screening for malignant neoplasm of cervix (principal); F32.A Depression, unspecified
CPT/HCPCS: 36415; 80048; 82306; 82607; 82728; 83540; 83550; 85025; 87624; 88175; G0145

== ENCOUNTER 2022-04-21 08:30 | Outpatient (RCR) | payer MEDICAID, SELFPAY ==
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
== END 2022-04-21 19:00 | disposition home or self-care (01) ==
LOC: PT 08:30
PROVIDERS: PCP Family Medicine; Referring Provider Family Medicine; Visit Provider Family Medicine
DX: M54.9 Dorsalgia, unspecified (principal)
CPT/HCPCS: 97110; 97161

== ENCOUNTER 2022-10-05 09:14 | Emergency (ER) | payer MEDICAID, SELFPAY ==
[2022-10-05 09:15] VITALS: BP 128/75; PULSE 95; RESP 16; TEMP 36.4; O2SAT 100; BMI 34.7
--- NOTE | 2022-10-05 09:36 | EX.ED.VIS.UR ---
HPI HPI - URI History of Present Illness Chief Complaint: Sore Throat Informant: patient Onset/Context/Timing Onset: Days Context: Gradual Onset Timing: Intermittent Current Severity: Mild Maximum Severity: Mild Associated Symptoms Associated Symptoms: Positive for Nasal Congestion and Diarrhea; Negative for Nausea, Vomiting, Shortness of Breath, Chest Pain, Nonproductive cough, Hemoptysis or Productive Cough Narrative Narrative: 32-year-old female no seen past medical history. Currently on no medications. Several weeks she has had intermittent sore throat. Some diarrhea. Kids had similar symptoms. She is able to swallow. No fever or chills. Symptoms better today. Some mild nasal congestion Prior similar symptoms: Yes Recent Illness/Hospitalization: No ROS ROS ED ROS Narrative Nasal congestion. Intermittent sore throat. Diarrhea. Review of Systems ROS Unobtainable: Denies due to encephalopathy Constitutional Constitutional ED: Denies chills or fever(s) Eyes Eyes: Denies blurry vision ENT ENT ED: Reports rhinorrhea and sore throat; Denies ear pain Cardiovascular Cardiovascular: Denies chest pain Respiratory/Chest Respiratory/Chest: Denies cough or dyspnea Gastrointestinal Gastrointestinal: Reports diarrhea; Denies abdominal pain Genitourinary Genitourinary ED: Denies dysuria or hematuria Musculoskeletal Musculoskeletal: Denies arthralgias Integumentary Denies abscess Neurologic Neurologic: Denies headache(s) Psychiatric Psychiatric: Denies anxiety Endocrine Endocrinology: Denies cold intolerance Hematologic/Lymphatic Hematologic/Lymphatic: Denies easy bleeding or easy bruising Allergic/Immunologic Allergic/Immunologic ED: Denies mouth swelling or tongue swelling PFSH PFSH Medical History Contraceptive management Ectopic , tubal Gestational diabetes HPV (human papilloma virus) infection Home Medications NK 08/08/22 [History Last Taken Unknown] Allergy/AdvReac Type Severity Reaction Status Date / Time No Known Allergies Allergy Verified 10/05/22 09:14 Family History Mother Diabetes Father Diabetes Surgical History S/P laparoscopic surgery Social History adopted: No household members: children number of children: 2 current occupational status: employed current occupation: [employer] sexually active: No Smoking Status: Current every day smoker tobacco type: cigarettes alcohol intake: current alcohol intake frequency: a few times a month substance use type: marijuana and other details: history of substance use per records but none currently caffeine: Yes seatbelt use: always do you feel safe at home: Yes EXAM Physical Exam Narrative Exam Narrative: 32-year-old female no acute distress vital signs stable afebrile. HEENT exam unremarkable. Posterior pharynx normal. No redness. No exudate. No peritonsillar abscess. No significant swelling. No trouble swallowing or breathing. No drooling or stridor. Moist mucous membranes. TMs normal. Neck nontender. No lymphadenopathy. Lungs clear. Heart regular rhythm. Abdomen soft nontender. Otherwise exam unremarkable. Const Vital Signs: 10/05/22 09:15 Temperature 97.6 F L Temperature Source Temporal Pulse Rate 95 Respiratory Rate 16 Blood Pressure 128/75 H Blood Pressure Mean 92 Pulse Ox 100 Oxygen Delivery Method Room Air Positive well nourished and well developed; Negative for cachectic or contractures General Appearance ED: well developed and NAD; Negative for cachectic, contractures, cyanotic, diaphoretic or pallor Nutritional Appearance: Negative for cachectic HEENT Reports moist mucous membranes normocephalic Face and Sinus: Negative for sinus tenderness Teeth and Gingiva: Negative for caries Throat: posterior oropharynx normal; Negative for tonsils abnormal Eyes PERRL and EOMs intact bilaterally General Eye ED: Negative for pale conjunctiva or scleral icterus Neck no lymphadenopathy, supple, no meningeal signs and no JVD General: anterior neck swelling; Negative for lymphadenopathy Resp normal respiratory effort and clear to auscultation bilaterally Effort and Inspection: Negative for retractions Auscultation: Negative for rales or rhonchi Cardio S1 normal heart sound, S2 normal heart sound and no murmurs Rate: regular rate Rhythm: regular rhythm GI non-tender, non-distended and no masses Inspection: Negative for abdominal distention Auscultation: normoactive bowel sounds Palpation: soft; Negative for tender or guarding Back/Spine no CVA tenderness and normal ROM General Back: Negative for CVA tenderness Cervical Spine: Negative for cervical spine tenderness Thoracic Spine / Upper Back: Negative for thoracic spinal tenderness Lumbar Spine / Lower Back: Negative for lumbar spinal tenderness Sacrum: Negative for tenderness Extremity normal to inspection and full ROM General Extremety ED: Negative for cyanosis or tenderness General Extremity: Negative for cyanosis Neuro oriented x3 and CN's II-XII intact bilaterally Sensorium / Orientation: alert, oriented to person, oriented to place and oriented to time; Negative for orientation impaired, lethargic or stuporous Motor Exam: strength 5/5 throughout Psych mental status grossly normal Appearance: Negative for other Attitude: No agitated Mood & Affect: Negative for depressed, anxious or tearful Skin General Skin Exam: Negative for jaundice or pallor Lesions: no lesions Rashes: no rashes Trauma: Negative for abrasion MDM MDM MDM Narrative Medical decision making narrative: 32-year-old with an intermittent sore throat. Exam is benign at this time does not look like strep throat. I think this may be secondary to seasonal allergies or viral pharyngitis.. I did a rapid strep at that is negative she will be treated symptomatically. History & Record Review Discussion w/independent historian: Patient Lab Data Attestation: I reviewed the patient's lab results. Lab results narrative: Rapid strep was negative. She will be treated as a viral syndrome and/or seasonal allergies. Labs: Rapid strep test negative. Discharge Plan Triage Chief Complaint: Sore Throat ED Provider: Washington Rider Dx/Rx/DC Orders Clinical Impression: Acute viral pharyngitis Instructions: ED Pharyngitis, Viral Prescriptions: No Action NK Primary Care Provider: Lay Henderson Referrals: Lay Henderson MD [Primary Care Provider] - 1 Week if not improving Activity Restrictions/Additional Instructions: Warm salt water gargling. Apce-fjo-hcywmos allergy medication such as Sudafed. Follow-up if not improving or return if worse. Disposition Disposition: Home, Self Care
== END 2022-10-05 10:15 | disposition home or self-care (01) ==
PROVIDERS: Emergency Provider Emergency Medicine; PCP Family Medicine; Visit Provider Emergency Medicine
DX: J02.8 Acute pharyngitis due to other specified organisms (principal); B97.89 Other viral agents as the cause of diseases classified elsewhere; F17.210 Nicotine dependence, cigarettes, uncomplicated
CPT/HCPCS: 87880; 99282

== ENCOUNTER → 2023-01-13 | Outpatient (CLI) | payer MEDICAID, SELFPAY | END | disposition home or self-care (01) | PROVIDERS: PCP Family Medicine; Referring Provider Family Medicine; Visit Provider Family Medicine | DX: N76.0 Acute vaginitis (principal) | CPT/HCPCS: 87491; 87591 ==

== ENCOUNTER 2023-01-18 13:54 | Outpatient (CLI) | payer MEDICAID, SELFPAY ==
--- NOTE | 2023-01-18 | LES_PTH ---
PATIENT: CRISTO CARCAMO [facility]: [facility] U#:[id number] AGE/SX: 32/F ROOM: RE01/18/[address]: Dr. Lay Henderson MD : 1990 BED: DIS: 01/18/2023 SPEC #: [id number] RECD: 01/18/23 15:14 STATUS: JULY PAVON #: [id number] MOSES: 01/18/23 00:[address]: Lay Henderson DEPT: SURGICAL PATHOLOGY RECD BY: Abhinav Elizondo Tissues: A - Skin of chest B - Skin of back, NOS Procedures: Surgery Specimen Level IV HEADER OPERATION: 3.0 mm punch biopsy of chest and back PRE-OP DIAGNOSIS: 5 mm nonpigmented; 9 mm pigmented TISSUE SUBMITTED: A - Chest, B - Back MICROSCOPIC DIAGNOSIS A. Chest lesion, punch biopsy: Basal cell carcinoma, nodular, lateral margin involved. See comment. B. Back lesion, punch biopsies: Intradermal nevus (multiple pieces). SJ:rg 01/26/2023 COMMENT A. The specimen is sent to [facility] for expert opinion, reviewed by Dr. Mateus Sosa and the above diagnosis is rendered. The complete report is viewable in the patient's EMR. Clinical correlation and appropriate follow up are necessary. Case has been reviewed in consultation with Dr. Landa who concurs with the above diagnosis. IDC:AM MICROSCOPIC DESCRIPTION Slides are reviewed. GROSS DESCRIPTION A - Received in fixative is one container labeled with the patient's name and designated chest. The specimen consists of a piece of chun-white skin measuring 0.3 x 0.2 x 0.1 cm. The entire specimen is submitted in one cassette. B - Received in fixative is one container labeled with the patient's name and designated back. The specimen consists of multiple irregular fragments of chun-brown skin that in aggregate measure 0.6 x 0.3 x 0.1 cm and 0.1 to 0.2 cm in greatest dimension. The entire specimen is submitted in one cassette. / MAURA:vito 01/19/2023 TC:0 CPT: 73529 x2
== END 2023-01-18 23:59 | disposition home or self-care (01) ==
LOC: LABSPEC 13:56
PROVIDERS: PCP Family Medicine; Referring Provider Family Medicine; Visit Provider Family Medicine
DX: C44.519 Basal cell carcinoma of skin of other part of trunk (principal)
CPT/HCPCS: 88305

== ENCOUNTER → 2023-08-09 | Outpatient (CLI) | payer MEDICAID, SELFPAY | END | disposition home or self-care (01) | LOC: PSN 07:02 | PROVIDERS: PCP Family Medicine; Referring Provider Nurse Practitioner Family; Visit Provider Nurse Practitioner Family | DX: R00.2 Palpitations (principal); F19.91 Other psychoactive substance use, unspecified, in remission | CPT/HCPCS: 93225; 93226 ==

== ENCOUNTER → 2023-09-08 | Outpatient (CLI) | payer MEDICAID, SELFPAY ==
[2023-09-08 15:27] LABS: Absolute Lymphocyte Count 2.18 X10^3/uL (0.83-4.51); Absolute Neutrophil Count 4.1 X10^3/uL (2.0-7.7); Basophil# 0.03 X10^3/uL; Basophil% 0.4 % (0-1); Eosinophil# 0.06 X10^3/uL; Eosinophils% 0.9 % (0-5); Hematocrit 38.1 % (37-47); Hemoglobin 12.2 g/dL (12.0-15.0); Lymphocyte # 2.18 X10^3/ul (0.83-4.51); Lymphocyte % 31.7 % (19-41); Mean Corpuscular Hgb 28.2 pg (27.0-32.0); Mean Corpuscular Volume 88.2 fL (81-99); Mean Platelet Vol. 10.6 fl (6.2-12.0); Monocyte# 0.51 X10^3/uL; Monocyte% 7.4 % (0-10); NRBC Flagged by Analyzer 0 % (0-5); Neutrophil # 4.06 X10^3/uL (2.7-7.7); Neutrophil % 59.2 % (47-70); Platelet Count 266 K/mm3 (150-450); RBC Distribution Width CV 12.4 % (11.6-14.6); RBC Distribution Width SD 40.7 fl (35.1-43.9); Red Blood Count 4.32 M/mm3 (4.2-5.4); White Blood Count 6.9 K/mm3 (4.4-11.0)
[2023-09-08 15:52] LABS: Hemoglobin A1c 4.6 % (3.8-5.6)
[2023-09-08 16:04] LABS: Thyroid Stim Hormone (TSH) 0.89 uIU/mL (0.358-3.74)
== END | disposition home or self-care (01) ==
LOC: BFHLAB 11:44
PROVIDERS: PCP Family Medicine; Visit Provider Family Medicine
DX: Z00.00 Encounter for general adult medical examination without abnormal findings (principal); R53.83 Other fatigue; Z83.3 Family history of diabetes mellitus
CPT/HCPCS: 36415; 83036; 84443; 85025

== ENCOUNTER → 2023-09-08 | Outpatient (CLI) | payer MEDICAID, SELFPAY ==
[2023-09-13 17:07] LABS: Age Gdln ACOG Testing 30-65 (.); HPV APTIMA, High Risk Negative (Negative)
[2023-09-13 18:21] LABS: HPV Reflexed? YES, CHARGE PATIENT
== END | disposition home or self-care (01) ==
LOC: LABSPEC 13:41
PROVIDERS: PCP Family Medicine; Visit Provider Family Medicine
DX: Z00.00 Encounter for general adult medical examination without abnormal findings (principal); Z12.4 Encounter for screening for malignant neoplasm of cervix; R53.83 Other fatigue; Z83.3 Family history of diabetes mellitus
CPT/HCPCS: 36415; 83036; 84443; 85025; 87624; 88175; G0145

== ENCOUNTER → 2023-11-06 | Outpatient (CLI) | payer MEDICAID, SELFPAY ==
--- NOTE | 2023-11-06 10:38 | STE_ITS ---
Reason For Study: CHEST PAIN Stress Results Protocol: Nick Protocol Maximum Predicted HR: 186 bpm Target HR: 158 bpm % Maximum Predicted HR: 89 % DurationHeart Rate Stage (mm:ss) (bpm) BP BASELINE 77 100/62 STAGE 1 3:00 110 110/70 STAGE 2 3:00 136 140/62 STAGE 3 3:00 160 144/70 STAGE 4 0:30 166 / RECOVERY 95 100/58 Stress Duration: 9:30 mm:ss Maximum Stress HR: 166 bpm Baseline Echocardiogram Findings Stress Echo Wall motion Data Resting WM Intermediate WM Stress WM ECHO/Stress Test Echo w/o Contrast Interpretation Summary Exercise stress echo. 33-year-old lady with a history of chest pain. Stress protocol: Resting EKG demonstrates sinus rhythm with a rate of 72 bpm normal intervals ar e noted resting blood pressure is 100/62 mmHg. The patient exercised according to regular Nick usman col for total duration of 9 minutes and 31 seconds completing 31 seconds into stage IV of the Nick protocol the maximum heart rate attained was 173 bpm which was 93% of max impacted heart rat e the maximum workload was 11.7 metabolic equivalents. At rest there were no ST or T wave maria m nges noted suggest ischemia and at peak exercise upsloping ST changes were noted we did not meet t he criteria for ischemia. No clinical angina was noted. The peak blood pressure was 144/70 mmHg which was a normal blood pressure response to exercise. Stress echocardiogram. The resting echocardiogram demonstrated preserved ejection fraction of 55% with a peak ejection fraction noted to be 65% with thickening of all farr and reduction of low vent ricular cavity size with no new wall motion abnormalities present. Conclusion: Exercise stress echo with no EKG or echocardiographic changes for ischemia at a high workload. Good functional aerobic capacity. Ordering Physician: Sraanya Ron Referring Physician: Saranya Ron Performed By: Fred Hughes RCS
== END | disposition home or self-care (01) ==
LOC: CVS 10:32
PROVIDERS: PCP Family Medicine; Referring Provider Nurse Practitioner Family; Visit Provider Nurse Practitioner Family
DX: R00.2 Palpitations (principal); F19.91 Other psychoactive substance use, unspecified, in remission
CPT/HCPCS: 93017; 93350

== ENCOUNTER → 2023-12-18 | Outpatient (CLI) | payer MEDICAID, SELFPAY ==
--- NOTE | 2023-12-18 13:56 | ECHOD_ITS ---
Reason For Study: SOB Procedure This was a 2D Doppler, Color Flow transthoracic echocardiogram. Exam performed in department. Left Ventricle Normal LV size. Left ventricular systolic function is normal. The left ventricular ejection fraction is 55 %. Normal diastology for age. No regional wall motion abnormalities noted. Right Ventricle Normal RV size. Normal systolic function. Atria Normal left atrium. Normal right atrium. Mitral Valve Normal mitral valve. Tricuspid Valve Normal tricuspid valve. Aortic Valve Trisinus/trileaflet aortic valve. Pulmonic Valve Normal pulmonic valve. Great Vessels Normal aortic root. The pulmonary artery is normal size. Normal inferior vena cava. Pericardium/Pleural No pericardial effusion. MMode/2D Measurements & Calculations LVIDd: 4.7 cm IVSd: 0.76 cm Ao root diam: 3.1 cm LVIDs: 3.6 cm LVPWd: 0.98 cm RVDd: 2.1 cm FS: 23.2 % LAV(MOD-bp): 37.8 ml LVAd ap4: 29.4 cm2 SV(MOD-sp4): 49.4 ml LAV(MOD-bp) Indexed: 19.4 ml/m2 LVLd ap4: 8.2 cm LAV(MOD-sp2): 43.8 ml EDV(MOD-sp4): 88.9 ml LAV(MOD-sp4): 30.5 ml EDV(sp4-el): 89.9 ml LVAs ap4: 18.2 cm2 LVLs ap4: 7.1 cm ESV(MOD-sp4): 39.5 ml ESV(sp4-el): 39.7 ml EF(MOD-sp4): 55.5 % EF(sp4-el): 55.9 % SV(sp4-el): 50.3 ml LA A4 area: 14.6 cm2 LA dimension(2D): 3.2 cm RA A4 area: 10.9 cm2 TAPSE: 1.9 cm Time Measurements MV dec time: 0.24 sec Doppler Measurements & Calculations MV E max benedicto: 67.3 cm/sec Lat Peak E' Benedicto: 13.1 cm/sec Med Peak E' Benedcito: 11.4 cm/sec MV A max benedicto: 40.5 cm/sec E/E' lat: 5.2 E/E' med: 5.9 MV E/A: 1.7 MV V2 max: 73.6 cm/sec Ao V2 max: 133.7 cm/sec MV max P.2 mmHg MV dec slope: 296.1 cm/sec2 Ao max P.2 mmHg MV V2 mean: 44.8 cm/sec Ao V2 mean: 92.4 cm/sec MV mean P.89 mmHg Ao mean P.9 mmHg MV V2 VTI: 25.6 cm Ao V2 VTI: 27.9 cm AV (velocity ratio): 0.89 LV V1 max: 126.9 cm/sec PA V2 max: 106.6 cm/sec LV V1 max P.4 mmHg PA V2 mean: 80.2 cm/sec LV V1 mean P.6 mmHg LV V1 mean: 89.4 cm/sec LV V1 VTI: 24.7 cm ECHO/Echo Complete Interpretation Summary Normal LV size. Left ventricular systolic function is normal. The left ventricular ejection fraction is 55 %. Structurally normal valves. Ordering Physician: Rivka Franklin Referring Physician: Rivka Franklin Performed By: Linda Bird RCS
== END | disposition home or self-care (01) ==
LOC: CVS 13:54
PROVIDERS: PCP Family Medicine; Referring Provider Internal Medicine Cardiovascular Disease; Visit Provider Internal Medicine Cardiovascular Disease
DX: R00.2 Palpitations (principal); R06.02 Shortness of breath; R42 Dizziness and giddiness
CPT/HCPCS: 93306